=== PATIENT | female | born 1940 | race Caucasian/White ===

== ENCOUNTER 2018-11-18 16:09 | Inpatient (IN) ==
[2018-11-18] MEDS ORDERED: DUONEB (A & A) INH ONE (16:13)
[2018-11-18 16:33] LABS: BASO# 0.02 X1000 (0.0-0.2); BASO% 0.1 % (0.0-0.8); EOS# 0.31 X1000 (0.0-0.7); EOS% 2.1 % (0.0-10.0); HEMATOCRIT 36.5 % (37.0-47.0); HEMOGLOBIN 11.3 g/dL (12.0-16.0); IMM GRAN# 0.04 X1000 (0.0-0.04); IMM GRAN% 0.3 % (0.0-0.5); LYMPH# 2.36 X1000 (1.2-3.4); LYMPH% 15.6 % (20.5-51.1); MCH 27.8 PG (27-31); MCV 89.9 FL (81-99); MONO# 1.13 X1000 (0.11-0.59); MONO% 7.5 % (1.7-9.3); MPV 11.4 FL (7.4-10.4); NEUT# 11.22 X1000 (1.4-6.5); NEUT% 74.4 % (42.2-75.2); PLT 221 X1000 (130-400); RBC 4.06 XMIL (4.2-5.4); WBC 15.08 X1000 (4.8-10.8)
[2018-11-18 16:45] LABS: INR 0.99; PROTIME 13.6 Seconds (11.0-16.0); PTT 28.3 Seconds (22.3-41.8)
[2018-11-18 16:53] LABS: CALCIUM 8.7 mg/dL (8.8-10.2); CREATININE 1.7 mg/dL (0.5-0.9); POTASSIUM 3.7 mmol/L (3.5-5.1); TOTAL BILIRUBIN 0.3 mg/dL (0.20-1.00); TOTAL PROTEIN 6.6 g/dL (6.3-8.3)
--- NOTE | 2018-11-18 16:54 | Diag Imaging Result Doc PS360 ---
CHEST-1 VIEW - 11/18/2018 INDICATION: SOB COMPARISON: None FINDINGS: The lungs are normally expanded and clear. Heart size and mediastinal contours are normal. No pneumothorax or pleural effusion. IMPRESSION: Negative exam. Electronically signed by Abel Cervantes 11/18/2018 4:52 PM
[2018-11-18] MEDS ORDERED: LOVENOX 1 MG/KG SUBQ ONE (17:09)
[2018-11-18] MEDS ORDERED: LOVENOX SUBQ ONE (17:15)
--- NOTE | 2018-11-18 17:38 | EKG Report ---
Test Performed on : 11/18/2018 4:35:57 PM Test Reason : SOB Blood Pressure : / mmHG Vent. Rate : 083 BPM Atrial Rate : 083 BPM P-R Int : 190 ms QRS Dur : 092 ms QT Int : 392 ms P-R-T Axes : 034 -22 040 degrees QTc Int : 460 ms Normal sinus rhythm. Moderate voltage criteria for LVH, may be normal variant Cannot rule out Septal infarct , age undetermined Abnormal ECG No previous ECGs available Unconfirmed Result
[2018-11-18 17:40] LABS: BILIRUBIN URINE NEGATIVE (NEGATIVE); BLOOD URINE NEGATIVE (NEGATIVE); CLARITY CLEAR (CLEAR); COLOR YELLOW; GLUCOSE URINE NEGATIVE (NEGATIVE); KETONE URINE NEGATIVE (NEGATIVE); LEUKOCYTES URINE NEGATIVE (NEGATIVE); NITRITE URINE NEGATIVE (NEGATIVE); PH URINE 6.5; PROTEIN URINE TRACE mg/dL (NEGATIVE); SP GRAVITY URINE 1.015; UROBILINOGEN URINE NORMAL
[2018-11-18] MEDS ORDERED: ROCEPHIN 1 GM in NS 50 ML IV ONE (17:42)
[2018-11-18] MEDS ORDERED: ZITHROMAX 500 MG/NS 500 MG/250 ML IVPB IV ONE (17:42)
[2018-11-18 17:49] LABS: URINE BACTERIA NEGATIVE /HFP; URINE EPITHELIAL CELLS >10 /HPF (<10); URINE RBC <10 /HPF (<10); URINE SOURCE CATH; URINE WBC <10 /HPF (<10)
--- NOTE | 2018-11-18 17:55 | PROVIDER DOCUMENTATION ---
This chart was entered by Gisela Lord Scribe, acting as scribe for Kev Serrano MD. HPI-General Adult - General Chief Complaint: Weakness Stated Complaint: weakness Time Seen by Provider: 11/18/18 16:16 Source: patient, family (son), EMS Allergies/Adverse Reactions: Patient Allergies Allergy/AdvReac Type Severity Reaction Status Date / Time No Known Allergies Allergy Verified 11/18/18 16:24 Home Medications: Home Medication List Medication Instructions Recorded Confirmed Last Taken Type Unobtainable [Home Meds 11/18/18 11/18/18 Unknown History Unobtainable] - History of Present Illness -Gen Adult Nature of Presenting Problems: 78yof presents to ED by EMS cc weakness, cough, low o2. EMS reports they were called to pt home, which is a [facility] facility in [place], b/c nurse said her o2 was low. Pt reports she is very weak and has had a cough but is on no home o2. Pt son is at bedside and reports this is pt 4th ED visit for same symptoms, especially the cough & weakness, and he just wants answers. Pt denies chest pain. Pt is in no apparent distress and nontoxic in appearance upon exam. Location of Pain/Injury: reports: generalized Quality of Pain: reports: aching Severity: reports: moderate Onset/Duration: reports: gradual Timing: reports: still present Context/Activities at Onset: reports: light activity Modifying Factors: improves with: nothing Associated Symptoms: reports: cough, fatigue, weakness Similar Symptoms Previously?: Yes Recently seen or treated by another doctor?: Yes (seen in [facility]) Review of Systems - Adult - REVIEW OF SYSTEMS - ADULT Constitutional: reports: see HPI, fatique. denies: chills, fever Eyes: reports: no symptoms reported Ears, Nose, Mouth & Throat: reports: no symptoms reported Cardiovascular: reports: see HPI. denies: chest pain Respiratory: reports: see HPI, cough, other (low o2) Gastrointestinal: reports: no symptoms reported Genitourinary: reports: no symptoms reported Musculoskeletal: reports: no symptoms reported Integumentary: reports: no symptoms reported Neurological: reports: no symptoms reported Psychiatric: reports: no symptoms reported Endocrine: reports: no symptoms reported Hematologic/Lymphatic: reports: no symptoms reported Allergic/Immunologic: reports: no symptoms reported All Other Systems: Reviewed and Negative Past History - Adult - PAST MEDICAL HISTORY-ADULT Review of Records: reports: Nursing Assessment Review, Medications Reviewed, Social history reviewed & non-contributory. Major Childhood Illnesses: reports: denies history Cardiovascular: reports: denies history Respiratory: reports: denies history Gastrointestinal: reports: denies history Obstetrical/Gynecological: reports: denies history Genitourinary: reports: denies history Musculoskeletal: reports: denies history Neurological: reports: denies history Endocrine/Immune: reports: denies history Other Conditions: reports: denies history - IMMUNIZATION STATUS Childhood Immunizations: See Nurse Assessment Flu Vaccine: See Nurse Assessment - FAMILY HISTORY Family History: reviewed, not pertinent - SOCIAL HISTORY Smoking: denies Physical Exam-General - PHYSICAL EXAM-ADULT Initial Vital Signs Reviewed: Yes - CONSTITUTIONAL General Appearance: appears well, alert, no apparent distress. negative: anxious, combative - EYES Eyes: PERRL/EOMI, pink conjunctivae. negative: photophobia - HEAD, EARS, NOSE, MOUTH & THROAT HENMT: normocephalic/atraumatic, moist mucous membranes. negative: angioedema - NECK Neck: non-tender, full range of motion, supple, normal inspection. negative: C- spine tenderness - RESPIRATORY Respiratory: chest non-tender, lungs clear, decreased breath sounds (left base). negative: normal breath sounds, rhonchi - CARDIOVASCULAR Cardiovascular: normal peripheral pulses, regular rate, rhythm. negative: bradycardia, tachycardia - GASTROINTESTINAL (ABDOMEN) Abdominal Exam: normal bowel sounds, non tender, soft. negative: rebound - MUSCULOSKELETAL Extremity: normal inspection. negative: deformity - SKIN Integumentary: normal color. negative: diaphoresis, ecchymosis - PSYCHIATRIC Psych/Mental Status: normal mood/affect, oriented x 3. negative: anxious, disheveled Progress - PLAN OF CARE/RESULTS Progress/Plan/Lab Results: Vital Signs - 8 hr 11/18/18 16:07 Pulse Rate 99 H Respiratory Rate 18 Blood Pressure 115/70 O2 Sat by Pulse Oximetry 93 L Orders Category Date Time Status Cardiac Monitoring DIRECTED Care 11/18/18 16:12 Active Oxygen Therapy- ED Nursing DIRECTED Care 11/18/18 16:12 Active Saline Loc NOW Care 11/18/18 16:12 Active CHEST-1 VIEW [RAD] Stat Exams 11/18/18 16:13 Ordered CBC WITH ELECTRONIC DIFF [HEME] Stat Lab 11/18/18 16:12 Uncollected CK PROFILE [SP CHEM] Stat Lab 11/18/18 16:12 Uncollected COMPREHENSIVE METABOLIC PANEL [CHEM] Stat Lab 11/18/18 16:12 Uncollected D-DIMER [COAG] Stat Lab 11/18/18 16:13 Ordered PRO B-NATRIURETIC PEPTIDE Stat Lab 11/18/18 16:12 Uncollected PROTIME WITH INR [COAG] Stat Lab 11/18/18 16:12 Uncollected PTT [COAG] Stat Lab 11/18/18 16:12 Uncollected TROPONIN T Stat Lab 11/18/18 16:12 Uncollected Albuterol 2.5MG/Ipratrop 0.5MG [Duoneb (A & A)] Med 11/18/18 16:13 Discontinued 3 ml INH NOW ONE Aerosol Treatments Routine Oth 11/18/18 16:13 Active Aerosol Treatments Stat Oth 11/18/18 16:13 Active CP/SOB/Palp >45 yrs of Age Stat Oth 11/18/18 16:12 Ordered EKG [EKG] Stat Ther 11/18/18 16:12 Ordered Result Diagrams: 11/18/18 16:20 11/18/18 16:20 - REASSESSMENT Reassessment #1 Time Reassessed: 17:55 Status: improving (ALERT. NORMAL MENTAL STATUS. NO CHEST PAIN. ABLE TO SPEAK IN FULL SENTENCES) - EKG 1 Time of EKG reading by physician:: 16:41 EKG Read and Signed by:: Kev Serrano EKG Interpretation (*Must complete 3 of following elements*): Abnormal (cannot rule out septal infarct, age undetermined) Rate: 83 Rhythm: NSR QRS: LVH ST Wave: normal - XRAY 1 XRAY: Bilateral XRAY Study: Chest Impression: See EMR Report (IMPRESSION: Negative exam. Electronically signed by Abel Cervantes 11/18/2018 4:52 PM) - CONSULTS/PCP/HOSPITALIST Notification #1 *Consult/PCP/Hospitalist*: Dr. Juan Time Discussed: 17:52 Consult Disposition: Admit (agreed to admit pt) Departure - Departure Date of Disposition Decision: 11/18/18 Time of Disposition Decision: 17:52 DIAGNOSIS: Weakness, Hypoxia Leukocytosis Qualifiers: Leukocytosis type: unspecified Qualified Code(s): D72.829 - Elevated white blood cell count, unspecified Disposition: ADMITTED INPATIENT 09 Certified Medical Emergency: Emergent Condition: Stable Additional Freetext Instructions: ED Follow Up Instructions: You have been treated by a care provider in the Emergency Department. These instructions are being provided to you so you can have an understanding of how to care for yourself upon discharge. Upon discharge from the Emergency Department, you are responsible for making arrangements for follow-up care by a physician of your choice. Take all prescribed medications as directed. Return to the Emergency Department immediately for any new or worsening symptoms. You may call the Physician Referral phone number at [phone] to obtain a list of Physicians who are taking new patients. Referrals and Follow-Ups: None,PCP [Primary Care Provider] - - Critical Care Note This patient required my direct & personal management of CC.: No Attestation - Physician/ LINCOLN Attestation Patient care was provided by Advanced Practice Provider:: No The physician spent face to face time with patient:: Yes Advanced Practice Provider documentation review:: Supervising physician onsite and consulted in the evaluation and care of this patient. The physician did have a face to face encounter with the patient. This chart was documented by the indicated scribe, (Gisela Lord Scribe) and accurately reflects the services I performed and decisions made by me, Kev Serrano MD, as attested by the provider's signature.
[2018-11-18] MEDS: DUONEB (A & A) INH SCH ×2 (18:16→22:05)
[2018-11-18] MEDS ORDERED: ZOFRAN IV PRN (18:16)
[2018-11-18 19:30] LABS: HEMOGLOBIN A1C 5.8 % (4.8-6.0)
[2018-11-18] MEDS ORDERED: MUCOMYST 20% INH SCH (19:30)
--- NOTE | 2018-11-18 19:34 | Diag Imaging Result Doc PS360 ---
EXAM: CT THORAX W/O CONTRAST - 11/18/2018 HISTORY: pna TECHNIQUE: CT thorax without contrast. No contrast administered per request of the referring provider, apparently due to elevated creatinine/diminished GFR. COMPARISON: 11/18/2018 one view chest FINDINGS: There is mild atelectasis and/or irregular infiltrate at the inferior left lower lobe. The remainder the lungs appear essentially clear. There is no pleural effusion or pneumothorax identified. There are nonspecific small mediastinal lymph nodes. There is a moderate to large hiatal hernia. IMPRESSION: Mild atelectasis and/or irregular infiltrate at inferior left lower lobe. Nonspecific small mediastinal lymph nodes. Moderate to large hiatal hernia. This exam was performed using automated exposure control, adjustment of mA or kV according to patient size, and/or use of iterative reconstruction technique. Electronically signed by Abraham Miller 11/18/2018 7:32 PM
[2018-11-18 19:51] LABS: BE 11.1 mmoll (-3.0-3.0); BLOOD TYPE ARTERIAL; HCO3-(ACT) 33.5 mmoll (20.0-26.0); METHB 0.5 % (0.0-1.5); O2(CT) 15.3 mL/dL (15.0-23.0); O2HB 94.1 % (95.0-99.0); PCO2(98.6) 43 mmHg (35-45); PO2(98.6) 71 mmHg (60-100); SAMPLE BLOOD; SAO2 95.8 % (95.0-100.0); THB 11.5 g/dL (11.5-17.4); pH(98.6) 7.52 (7.35-7.45)
[2018-11-18 19:54] LABS: ALLEN TEST NO; MODALITY CANNULA
--- NOTE | 2018-11-18 20:08 | HISTORY AND PHYSICAL ---
PRIMARY CARE PROVIDER: Dr. Alatorre, Internal Medicine, [place]. CHIEF COMPLAINT: Low oxygenation. Productive cough. HISTORY OF PRESENT ILLNESS: Ms. 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 She recently moved down here from [place] about 3 years ago. She had a history of chronic pain with fibromyalgia, and was on lots of pain medication. Apparently she even went through a little bit of a rehabilitation and was taken off a lot of her pain medication. She has been living at [facility] in [place] for at least 3 years. She came here from [place] because her son is local. There she has been getting around okay, using a walker, but has become much more weak over the last 2 months. She was also treated at [place] around a month and a half ago for pneumonia, and then 2 weeks ago went to [place] once again with confusion. Apparently she has been on and off antibiotics for the last couple of months. Chest x-ray here does not show any pneumonia, but she has been coughing up zhao- sheppard phlegm. She denies any fever but she definitely has some shortness of breath, dizziness and lightheadedness. She has had more shortness of breath. Denies any problems with eating or having any issues with her GI tract. No nausea or vomiting. No diarrhea. No chest pain. We will admit her for hypoxemia, because apparently she had a low oxygen level at the [facility] living and that is why she was brought in today. 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 White count is elevated, D-dimer is elevated. We are going to get a chest CT and a VQ scan to rule out any pulmonary emboli or to see if there is a pneumonia that we are not catching on the x-ray. Home medications, which have not been updated yet: It looks like she takes aspirin 81 mg. She is on something for depression, blood pressure, mood stabilizer, something for cholesterol and some medications for COPD. She was placed on 2 L of oxygen, which improved dramatically. She will be put on some antibiotics. PAST MEDICAL HISTORY: 1. Hypopituitary gland. She was on human growth hormone for 5 years but she has been off that for 3. 2. Coronary artery disease with MD in 1999. No stents. 3. GERD. 4. COPD. 5. Fibromyalgia. 6. Arthritis. 7. Hyperlipidemia. 8. Polypharmacy. 9. Hypertension. 10. Questionable CHF. 11. Depression. PAST SURGICAL HISTORY: 1. Hysterectomy. 2. Cholecystectomy 6 months ago. 3. Cataract surgery. 4. Dental implant. SOCIAL HISTORY: No tobacco. Drinks about 1 alcoholic beverage a month with dinner when she eats with her son. No illicit drug use. She moved from [place] 3 years ago. Her son moved her here, and she has been living at [facility] living in [place] for the last 3 years. She needs a walker to get around, but essentially has been almost bedridden according to the son. FAMILY HISTORY: Mother had heart problems. She had a stroke. Father had a stroke. ALLERGIES: No known drug allergies. MEDICATIONS: Home medications have not been reconciled yet, but what was recently filled that can be found under external medication history are: 1. Aspirin enteric-coated 81 mg p.o. daily. 2. Benzonatate capsule 3 times a day p.r.n. for cough. 3. Buspirone 15 mg p.o. twice a day. 4. Coreg 25 mg p.o. twice a day. 5. Centrum Silver p.o. daily. 6. Cetirizine 1 tablet p.o. daily. 7. Clonidine patch, apply to upper arm or torso and rotate sites weekly on Fridays. 8. Diclofenac gel topical twice a day. 9. Dicyclomine 3 times a day. 10. Duloxetine 30 mg daily. 11. Fluticasone nasal spray daily. 12. Furosemide 40 mg p.o. daily. 13. Hydrochlorothiazide 12.5 mg p.o. daily. 14. Keppra 750 mg p.o. twice daily. 15. Levofloxacin; it looks like she took that back in September. 16. Lisinopril 10 mg p.o. daily. 17. Lyrica 150 mg p.o. twice a day. 18. Melatonin 3 mg at bedtime. 19. Mobic 15 mg p.o. daily. 20. Nifedipine 30 mg daily. 21. Nitrofurantoin she took earlier this month. 22. Omeprazole 40 mg p.o. daily. 23. Zofran 4 mg every 8 hours p.r.n. 24. Prednisone. She was on a prednisone taper. 25. Rosuvastatin 20 mg p.o. nightly. 26. Savella 50 mg p.o. twice daily. 27. She was on Bactrim in September for 7 days, it looks like. 28. Symbicort 160/4.5 twice a day. 29. Tamsulosin 0.4 mg nightly. 30. Telmisartan 80 mg p.o. daily. 31. Trintellix 10 mg p.o. daily. 32. Tussin DM 2 teaspoons every 8 hours p.r.n. for cough. 33. Vitamin D2, 1.25 or 50,000 units once weekly on Fridays. 34. Vitamin B12, 1000 mcg 1 tablet p.o. every day. REVIEW OF SYSTEMS: Fourteen-point review of systems are complete and all are negative except for those mentioned above in HPI. PHYSICAL EXAMINATION: VITAL SIGNS: Temperature not recorded, heart rate 84, respiratory rate 20, blood pressure 104/54, O2 saturation 96% on 2 L nasal cannula. Five feet 6 inches tall, 220 pounds with a BMI of 35.5. GENERAL: Ms. Essie Foster is a 78-year-old female. She is in no acute distress. She is able to answer some questions appropriately. HEENT: Atraumatic, normocephalic. Pupils equal, round and reactive to light. Extraocular movements intact. Mucous membranes are moist. NECK: Trachea midline. CARDIOVASCULAR: S1, S2. Regular rate and rhythm. No rubs, gallops or murmurs. No lower extremity edema. Dorsalis and radial pulses +2. Negative for JVD or carotid bruits. PULMONARY: Clear to auscultate. Bilateral breath sounds, decreased in the bases. No accessory muscle use or work of breathing noted. GASTROINTESTINAL: Soft, nontender, nondistended. Positive bowel sounds x4. EXTREMITIES: Moves all extremities equally. Decreased range of motion. Strength is 4/5. NEUROLOGIC: Alert and oriented x3. Follows commands. Sensory is intact. SKIN: Warm, dry, intact, except for bruising in different areas. The left thumb is actually pretty bruised. LABORATORY DATA: White blood cells 15,000, hemoglobin 11, hematocrit 36, platelet count 221,000. INR 0.99, PTT is 28.3. D-dimer is 2.84. Sodium 139, potassium 3.7, BUN 40, creatinine 1.7, glucose 143, calcium is 8.7, bilirubin 0.30, AST 14, ALT 14. CK 35, troponin less than 0.01. ProBNP 40. Albumin 4.1, lactate 1.3. TSH 1.94. Urinalysis: Trace protein. DIAGNOSTIC DATA: Chest x-ray: Negative exam. EKG: Normal sinus rhythm, rate 83, QTc is 460. ASSESSMENT AND PLAN: 1. Chronic obstructive pulmonary disease exacerbation with [id number] hypoxemic respiratory insufficiency or failure, requiring oxygen. Improved quickly with oxygen. She will be receiving acetylcysteine, albuterol/Atrovent nebulizers, and we will probably need to get her started on some steroids. We will check a chest CT to rule out pneumonia. 2. Recently treated for pneumonia at an outside hospital about a month and a half ago. She has been coughing up colored phlegm, sheppard-zhao, so we will get a culture on that. She has leukocytosis with this, so she is on Zyvox and cefepime. 3. Elevated D-dimer. We will need to do an ultrasound of the lower extremities. She is going to have a VQ scan. She has some acute kidney injury due to that, probably from a little dehydration. She has been given a onetime dose of Lovenox. We will follow up tomorrow on her CT scan. 4. Anemia. We will trend it. 5. Acute kidney injury. Could possibly have a history of chronic kidney disease, but it is unknown at this point. We will recheck her kidney function in the morning. 6. Hyperglycemia, with no history of diabetes. We will do a hemoglobin A1c. She does actually have a recent use of prednisone taper, which could make this elevated. 7. Polypharmacy. Son has some concern about her being on so many medications, and she is on a lot of medications. It could very will need some trending down on these medications. Still waiting for the nurses to put in her home medications and have them completely verified, and we will evaluate what can be stopped and what can be continued. 8. History of fibromyalgia. Used to have a history of being on several pain medications, but was weaned from those around 3 years ago. 9. Hyperlipidemia. She is supposed to be on statin. 10. Gastroesophageal reflux disease. 11. History of myocardial infarction in 1999, but no stents. 12. Questionable history of possible congestive heart failure. She is on Lasix and she is also on Coreg. 13. Hypertension. Once home medications are verified, we will resume what we feel needs to be resumed. 14. Depression. Again, we will evaluate what medications she is actually on and get some started back if needed. 15. Deep venous thrombosis prophylaxis. She actually got a dose of weight-based Lovenox. Dictated by LILA Goodrich for Gigi Brito MD Addendum: Patient seen and examined by myself. Agree with LILA note. It reflects my assessment and plan. Patient is being admitted to hospital for PNA. Will start broad spectrum antibiotics with Zyvox and Cefepime. Will provide Duoneb as well. Will also check VQ scan because of elevated D dimer. Will monitor patient closely. cc: LILA Goodrich MD [facility]
[2018-11-18] MEDS: SOLU-MEDROL IV SCH (21:03)
[2018-11-18] MEDS: MAXIPIME 1 GM in NS 50 ML IV SCH (21:05)
[2018-11-18] MEDS: ZYVOX 600 MG/D5W 600 MG/300 ML IVPB IV SCH (21:55)
[2018-11-19] MEDS: DUONEB (A & A) INH SCH ×4 (03:03→23:13)
[2018-11-19] MEDS: SOLU-MEDROL IV SCH ×3 (05:18→20:22)
[2018-11-19 06:01] LABS: HEMATOCRIT 34.6 % (37.0-47.0); HEMOGLOBIN 10.7 g/dL (12.0-16.0); IMM GRAN# 0.02 X1000 (0.0-0.04); IMM GRAN% 0.2 % (0.0-0.5); LYMPH# 1.06 X1000 (1.2-3.4); LYMPH% 10.8 % (20.5-51.1); MCH 27.7 PG (27-31); MCHC 30.9 g/dL (33-37); MCV 89.6 FL (81-99); MPV 11.6 FL (7.4-10.4); PLT 206 X1000 (130-400); RBC 3.86 XMIL (4.2-5.4); RDW 15.5 % (11.5-14.5); WBC 9.78 X1000 (4.8-10.8)
[2018-11-19 06:10] LABS: CALCIUM 8.6 mg/dL (8.8-10.2); CREATININE 1.4 mg/dL (0.5-0.9); POTASSIUM 4.1 mmol/L (3.5-5.1)
[2018-11-19 06:21] LABS: BE 9.3 mmoll (-3.0-3.0); BLOOD TYPE ARTERIAL; HCO3-(ACT) 32.1 mmoll (20.0-26.0); METHB 0.4 % (0.0-1.5); O2(CT) 14.9 mL/dL (15.0-23.0); O2HB 93.4 % (95.0-99.0); PCO2(98.6) 43 mmHg (35-45); PO2(98.6) 66 mmHg (60-100); SAMPLE BLOOD; SAO2 95.1 % (95.0-100.0); THB 11.3 g/dL (11.5-17.4)
[2018-11-19 06:25] LABS: ALLEN TEST NO; MODALITY CANNULA
[2018-11-19 07:24] LABS: LYMPHS 10 % (21-51); MONO 1 % (1-9); SEGS 89 % (42-75)
--- NOTE | 2018-11-19 09:00 | Extremity Venous Study ---
EXAM: Venous U/S Bilateral Legs HISTORY: elevated D dimer TECHNIQUE: Hernandez scale, color Doppler, and duplex evaluation was performed. COMPARISON: None. FINDINGS: The deep veins of the bilateral lower extremities demonstrate appropriate compressibility and augmentation. No intraluminal thrombus is visualized. There is no evidence for DVT. The superficial veins appear patent. IMPRESSION: No evidence for deep venous thrombosis bilateral lower extremities. Electronically signed by Destiney Hart 11/19/2018 8:57 AM
[2018-11-19] MEDS: MAXIPIME 1 GM in NS 50 ML IV SCH ×2 (09:03→20:22)
[2018-11-19] MEDS ORDERED: CYMBALTA PO SCH (09:30)
--- NOTE | 2018-11-19 10:55 | Diag Imaging Result Doc PS360 ---
EXAM: LUNG SCAN / VQ HISTORY: SOB TECHNIQUE: Ventilatory images obtained with 37.2 mCi technetium DTPA. Perfusion images obtained with 5.9 mCi technetium MAA. COMPARISON: None. FINDINGS: There are no segmental perfusion abnormalities. No ventilation/perfusion mismatches. No evidence for acute pulmonary embolism. IMPRESSION: No evidence for acute pulmonary embolism. Electronically signed by Destiney Hart 11/19/2018 10:53 AM
[2018-11-19] MEDS: KEPPRA PO SCH ×3 (11:03→20:33)
[2018-11-19] MEDS: COREG PO SCH ×2 (11:03→20:23)
[2018-11-19] MEDS: ZYVOX 600 MG/D5W 600 MG/300 ML IVPB IV SCH (11:03)
[2018-11-19] MEDS: ASPIRIN EC PO SCH (11:03)
[2018-11-19] MEDS: MUCOMYST 20% INH SCH ×2 (11:14→23:13)
--- NOTE | 2018-11-19 12:21 | PROGRESS NOTE ---
DATE: 11/19/2018 SUBJECTIVE: The patient reports feeling fine. Denies any fever, chills, or shortness of breath. OBJECTIVE: Vital Signs: Temperature 97.8, heart rate 84, respiratory rate 18, blood pressure 113/63, and O2 saturation 95% on 2 L nasal cannula. General: This is a 78-year-old female lying in bed in no acute distress. Cardiovascular: S1, S2 heard. No murmurs, gallops, or rubs. Regular rate and rhythm. Respiratory: Clear bilaterally to auscultation reduced at both bases. Patient not using any accessory muscles or having work of breathing. Abdomen: Soft. Nontender to palpation. Bowel sounds present. No organomegaly. Extremities: No clubbing, cyanosis, or edema. Peripheral pulses present in both legs. Neurological: Patient alert and oriented x3. Moves all 4 extremities. LABORATORY DATA: White cell count is 9.78, hemoglobin 10.7, hematocrit 34.6, and platelets 206,000. ABG that shows pH 7.50, pCO2 43, and PO2 of 66. BMP reveals creatinine 1.4 and glucose 207. ASSESSMENT AND PLAN: 1. Chronic obstructive pulmonary disease exacerbation/left lower lobe pneumonia. The patient is on cefepime and Zyvox. White cell count is back to normal today. At this point, we will continue with acidosis and DuoNeb, and current antibiotics. 2. Elevated D-dimer. V/Q scan is pending. Patient received yesterday 1 dose 100 mg of Lovenox. We will see what that exam shows. I think most likely she has this pneumonia, and no pulmonary embolism. We have also ordered a Doppler of both lower extremities. No blood clot was seen. 3. Anemia of chronic disease. We will continue to monitor. CBC. 4. Acute kidney injury. I don't know if this is chronic or acute, but in any case, that condition is getting better. We will continue to monitor BMP. 5. Polypharmacy. We are awaiting for release of medications to make some adjustments to her current medications. 6. Hypertension. Blood pressure is under control. We will continue with same management. 7. Disposition. We will continue to monitor this patient closely. We will see what the VQ scan and echocardiogram shows. We will go from there. cc: Gigi Brito MD
--- NOTE | 2018-11-19 15:46 | ECHO REPORT ---
ORDER DATE: 11/18/2018 INDICATION: Shortness of breath. FINDINGS: 1. Right atrium appears normal in size at 3 cm. 2. Trace tricuspid regurgitation. RV systolic pressure of 34. 3. Normal RV size and systolic function. 4. No significant pulmonic insufficiency. 5. Normal left atrial size with a volume index of 22. 6. No mitral valve prolapse. Trace mitral regurgitation. There is no evidence of mitral stenosis. 7. Normal LV size, end-diastolic dimension of 4.8. Normal wall thicknesses with a posterior and interventricular septal wall thickness of 0.9 cm each. Normal LV systolic function. The estimated EF is 60%. No evidence of significant wall motion abnormalities on some limited images. 8. Aortic valve opens well. It is trileaflet. No evidence of stenosis or insufficiency. 9. Aorta appears normal in visualized segments. 10. No pericardial effusion seen. cc: MD Gigi Samayoa MD
[2018-11-19] MEDS: FLOMAX PO SCH (20:23)
[2018-11-19] MEDS: RESTASIS 0.05% OPH DROPS BOTH EYES SCH (20:23)
[2018-11-20] MEDS: ZYVOX 600 MG/D5W 600 MG/300 ML IVPB IV SCH ×3 (00:14→22:05)
[2018-11-20] MEDS: SOLU-MEDROL IV SCH (04:22)
[2018-11-20] MEDS: DUONEB (A & A) INH SCH ×4 (04:25→23:00)
[2018-11-20 06:17] LABS: BASO# 0.01 X1000 (0.0-0.2); BASO% 0.1 % (0.0-0.8); HEMATOCRIT 32.5 % (37.0-47.0); HEMOGLOBIN 10.1 g/dL (12.0-16.0); IMM GRAN# 0.08 X1000 (0.0-0.04); IMM GRAN% 0.5 % (0.0-0.5); LYMPH% 7.5 % (20.5-51.1); MCH 27.7 PG (27-31); MCHC 31.1 g/dL (33-37); MONO# 0.67 X1000 (0.11-0.59); MONO% 3.9 % (1.7-9.3); MPV 11.6 FL (7.4-10.4); NEUT# 15.19 X1000 (1.4-6.5); PLT 221 X1000 (130-400); RBC 3.65 XMIL (4.2-5.4); RDW 15.3 % (11.5-14.5); WBC 17.25 X1000 (4.8-10.8)
[2018-11-20 06:22] LABS: CALCIUM 8.9 mg/dL (8.8-10.2); CREATININE 1.1 mg/dL (0.5-0.9); POTASSIUM 4.1 mmol/L (3.5-5.1)
[2018-11-20] MEDS: PRILOSEC PO SCH (06:27)
[2018-11-20 06:45] LABS: LYMPHS 7 % (21-51); MONO 5 % (1-9); NRBC 1 % (0-0); SEGS 88 % (42-75)
[2018-11-20] MEDS: MUCOMYST 20% INH SCH ×2 (08:07→23:00)
[2018-11-20] MEDS: RESTASIS 0.05% OPH DROPS BOTH EYES SCH ×2 (08:33→20:30)
[2018-11-20] MEDS: KEPPRA PO SCH ×2 (08:34→20:20)
[2018-11-20] MEDS: FLONASE NAS SCH (08:34)
[2018-11-20] MEDS: ASPIRIN EC PO SCH (08:34)
[2018-11-20] MEDS: MAXIPIME 1 GM in NS 50 ML IV SCH ×3 (08:34→20:29)
[2018-11-20] MEDS: THERA M PLUS PO SCH (08:35)
[2018-11-20] MEDS: COREG PO SCH ×2 (08:35→20:20)
[2018-11-20] MEDS ORDERED: LASIX PO SCH (09:00)
--- NOTE | 2018-11-20 11:21 | PROGRESS NOTE ---
DATE: 11/20/2018 SUBJECTIVE: The patient reports feeling not okay today, although she is not able to tell me what exactly is going on. She is breathing okay. She does not have any chest pain. She does not have any fever. OBJECTIVE: Vital Signs: Temperature 98.3 degrees, heart rate 71, respiratory rate 18, blood pressure 135/63, O2 saturation 92% pain on room air. General Examination: This is a 78-year-old, female, lying in bed, in no acute distress. Cardiovascular Examination: S1 and S2 heard. No murmurs, gallops, or rubs. Regular rate and rhythm. Respiratory Examination: Clear bilaterally to auscultation. Diminished breath sounds in both bases. Patient is not using any accessory muscles or having work of breathing. Abdomen: Soft. Nontender to palpation. Bowel sounds present. No organomegaly. Extremities: No clubbing, cyanosis, or edema. Peripheral pulses present in both legs. Neurological Examination: The patient is alert and oriented x3. Moves 4 extremities. Laboratory Data: White cell count is 17.35, hemoglobin 10.1, hematocrit 32.5, platelets 221,000. Creatinine 1.1. ASSESSMENT AND PLAN: 1. Chronic obstructive pulmonary disease exacerbation/left lower lobe pneumonia. Patient continues to be on Zyvox and cefepime. White cell count is still elevated, I think because of the intravenous steroids. We are going to stop those. We will continue with current antibiotics and DuoNebs. 2. Elevated D-dimer. We have ruled out a pulmonary embolism by doing a V/Q scan that is negative. We will also ordered a Doppler of both lower extremities but no blood clot was identified. 3. Anemia of chronic disease. Stable. We will continue to monitor CBC. 4. Acute kidney injury. Kidney function is almost back to normal. We will continue to monitor BMP. 5. Polypharmacy. Once this patient is going to be released, we will make some adjustments to her current medications. 6. Hypertension. Blood pressure is under control. We will continue with the same management. 7. Disposition. At this point, we will continue to monitor this patient closely. Our plan is to send her to a rehab facility because during the last month, she has been in the hospital two times at her assisted living, she is in the bed all the time. cc: Gigi Brito MD [facility]
[2018-11-20] MEDS ORDERED: TYLENOL PO PRN (16:30)
[2018-11-20] MEDS ORDERED: ULTRAM PO PRN (16:31)
[2018-11-20] MEDS: FLOMAX PO SCH (20:20)
[2018-11-21] MEDS: DUONEB (A & A) INH SCH ×3 (05:13→22:12)
[2018-11-21 06:06] LABS: HEMATOCRIT 31.7 % (37.0-47.0); HEMOGLOBIN 9.8 g/dL (12.0-16.0); IMM GRAN# 0.03 X1000 (0.0-0.04); IMM GRAN% 0.3 % (0.0-0.5); LYMPH# 1.71 X1000 (1.2-3.4); LYMPH% 14.9 % (20.5-51.1); MCH 27.6 PG (27-31); MCHC 30.9 g/dL (33-37); MCV 89.3 FL (81-99); MONO# 0.88 X1000 (0.11-0.59); MONO% 7.7 % (1.7-9.3); MPV 11.5 FL (7.4-10.4); NEUT# 8.86 X1000 (1.4-6.5); NEUT% 77.1 % (42.2-75.2); PLT 208 X1000 (130-400); RBC 3.55 XMIL (4.2-5.4); RDW 15.4 % (11.5-14.5); WBC 11.48 X1000 (4.8-10.8)
[2018-11-21 06:13] LABS: CALCIUM 8.8 mg/dL (8.8-10.2); CREATININE 1.3 mg/dL (0.5-0.9); POTASSIUM 3.8 mmol/L (3.5-5.1)
[2018-11-21] MEDS: PRILOSEC PO SCH (06:20)
[2018-11-21] MEDS: MUCOMYST 20% INH SCH ×2 (09:03→22:12)
[2018-11-21] MEDS: RESTASIS 0.05% OPH DROPS BOTH EYES SCH ×2 (09:15→21:09)
[2018-11-21] MEDS: MAXIPIME 1 GM in NS 50 ML IV SCH ×2 (09:15→21:10)
[2018-11-21] MEDS: FLONASE NAS SCH (09:15)
[2018-11-21] MEDS: KEPPRA PO SCH (09:16)
[2018-11-21] MEDS: ASPIRIN EC PO SCH (09:16)
[2018-11-21] MEDS: THERA M PLUS PO SCH (09:16)
[2018-11-21] MEDS: COREG PO SCH ×2 (09:16→21:07)
[2018-11-21] MEDS: ZYVOX 600 MG/D5W 600 MG/300 ML IVPB IV SCH (10:31)
--- NOTE | 2018-11-21 10:34 | Diag Imaging Result Doc PS360 ---
EXAM: CT HEAD W/O CONTRAST - 11/21/2018 HISTORY: AMS TECHNIQUE: CT head without contrast COMPARISON: None. FINDINGS: There are mild atrophic changes. There is no evidence of intracranial hemorrhage, mass effect, midline shift, or hydrocephalus. There is no evidence of infarct, although acute infarcts may not be immediately visible. There is no evidence of skull fracture. There is mild paranasal sinus disease at the left compartment of the sphenoid sinus. The right mastoid bone is less aerated than the left, but the appearance is compatible with chronic change. IMPRESSION: No visible acute intracranial abnormality. No hemorrhage or mass effect. Mild paranasal sinus disease noted at the left compartment of the sphenoid sinus. This exam was performed using automated exposure control, adjustment of mA or kV according to patient size, and/or use of iterative reconstruction technique. Electronically signed by Abraham Miller 11/21/2018 10:32 AM
--- NOTE | 2018-11-21 11:27 | PROGRESS NOTE ---
DATE: 11/21/2018 SUBJECTIVE: Patient appears comfortably lying in bed and denies having any acute complaints, but has not been very verbal. OBJECTIVE: Vital Signs: Temperature 98.2 degrees, pulse 70 per minute, respiratory rate 16 per minute, blood pressure 124/45, pulse oximetry 96% on room air. General: Patient is awake and alert. She does not appear to be in any acute distress. Cardiovascular System: First and second heart sounds are audible without any murmurs or gallops. Respiratory System: Bilateral lung air entry is good without any rales or rhonchi. Gastrointestinal System: Patient is morbidly obese. Abdomen is soft and nontender on palpation. Normal bowel sounds are present. Neurologic: The patient is very slow to respond and appears to be phased out at times. I did not see any other focal deficits otherwise. DIAGNOSTIC DATA: CBC shows WBC count of 11.48, hemoglobin 9.8, hematocrit 31.7, and platelet count 208. Her WBC is improved as compared to yesterday when her WBC count was 17.25. Her hemoglobin and hematocrit have remained stable during the past several days. Basic metabolic panel showed BUN of 29 and creatinine 1.3. This is slightly worse as compared to yesterday when her BUN and creatinine were [address] scan of the brain without contrast done this morning because of altered mental status showed no visible acute intracranial abnormality, and did not have any hemorrhage or mass effect. IMPRESSION: 1. Altered mental status. 2. Acute chronic obstructive pulmonary disease exacerbation. 3. Left lower lobe pneumonia. 4. Hypertension. 5. Acute kidney injury. PLAN: She is having altered mental status and therefore I am going to obtain Neurology consultation with Dr. Arnold for further evaluation. CT scan did not show any significant findings, and it could be metabolic encephalopathy. She will continue with aspirin 81 mg orally once daily. As far as her COPD exacerbation and left-sided pneumonia are concerned, they are kind of resolved, and patient feels much better and has no wheezing anymore. She does have worsening of BUN and creatinine, and therefore I have discontinued her furosemide. She did have an echocardiogram done on 11/18/2018 that showed left ventricular ejection fraction to be well preserved at 60%. No signs of diastolic dysfunction were present either. Because of that, I have discontinued her Lasix and we are going to monitor her BUN and creatinine improvement in the next few days. She is therefore not going to be transferred out today or tomorrow since we are going to monitor her altered mental status at this time. We will continue with cefepime IV and would wait until Neurology consultation is done. cc: Saman Izaguirre MD
--- NOTE | 2018-11-21 14:50 | CONSULTATION ---
DATE OF CONSULTATION: 11/21/2018 Ms. Foster is 78 years old and she appears to have an altered mental state. She is not able to provide a valid history. I spoke at length with her son by telephone. I have reviewed the admission and subsequent records. This is her 1st admission here. Son reports she has been a little bit forgetful in recent months and that was more prominent while she was hospitalized for management of pneumonia in [place] a few months ago. She seemed better after she got out of the hospital. She has been in assisted living recently. She was admitted to this hospital with question of exacerbation of COPD. She has been noted to seem inattentive and to have trouble answering questions. She has not had a clear focal neurologic deficit. She has not been unresponsive or unconscious. She told me that she does not have headache. She does not have any other specific complaint. She seems uncertain about prior seizure history. Son reports seizure diagnosed elsewhere about 4 years ago and she has been taking levetiracetam since then. Son believes she has not had recent seizure. Son did not witness seizure. His report is that he was told she was "out of it" and "confused" as seizure manifestation, without definite unconsciousness or clonic activity reported. There is history of minor head injury about 5 years ago without altered consciousness. There is no history of more major or more recent head injury. She has never had diagnosed stroke, according to son. Son does not recall trial with cholinesterase inhibitor. On admission, her home medicine list has 35 entries. Son reports he has been concerned by the number of medications. She has been afebrile here. Heart rate has ranged 60s to 100s. Systolic blood pressures have ranged 100 to 130s. Lab showed BUN initially 40, down to 29 on last check. Initial creatinine was 1.7, down to 1.3 on last check. Blood sugars have ranged 140s to 200s. We did not have urine drug screen this admission. [place] [address] and later [address]. She has anemia. Noncontrast CT of the head is unremarkable. On exam, she is supine, awake, alert. She seems attentive at times and at other times not so attentive. She answered some simple questions correctly and later answered simple questions either incorrectly or with nonsense (I asked her to name the day of the week and she said "mohit"). Her speech is not dysarthric. Some of the language testing is difficult to interpret in light of the apparent poor attention. Responses were inconsistent but she was able to demonstrate good language function with repeated testing of repeating, naming, comprehension and fluency. .She did not name the hospital. She did tell me the correct name for the President. She did not discuss recent news when asked to do so. Head and neck are unremarkable. There is no meningismus. Hands and feet are warm. She has full visual mesa tested grossly by confrontational finger counting. Extraocular movements are full. Facial motility is good bilaterally. The right nasolabial fold is less prominent than the left but motility is good bilaterally. Gag is intact. Tongue is midline. She can hear. Shoulder shrug is equal. Strength is normal in the arms and legs. Tone is symmetric. She did well on [id number]-sq-raco testing bilaterally. Attention fluctuated, but she generally reported symmetric sensation over the hands and a mild symmetric stocking pattern of sensory loss below the ankles. Proprioception is good at the second finger MP joint bilaterally. I did not test her gait. IMPRESSION: This appears to be a global encephalopathy, except there may be some concern for dysphasia. Facial asymmetry is noted but motility is good bilaterally. Negative CT is reassuring. I have ordered a brain MRI for further reassurance. There may be a history of seizure and subclinical seizure might account for some of her apparent fluctuating attention. We will get EEG to check on that. We will continue levetiracetam at current dose for now. Depending on the EEG findings and clinical course, we might consider increasing that. She had transient poor renal function and she could have had a transient elevated levetiracetam serum level, but history does not sound like levetiracetam toxicity is the sole cause of recent difficulty. Cefepime has been added, which can be associated with encephalopathy, but I believe she was having problems before that was started. Son's history suggests a baseline cognitive impairment which would predispose her to greater encephalopathy with any toxic or metabolic problem. Depending on her clinical course, we might consider cautious cholinesterase inhibitor trial but I am very reluctant to add medicine to her current list. I agree with plans to try to reduce the number of medications. If she continues to be altered, particularly if there is deterioration, we might consider further workup including auto antibody profile with question of autoimmune encephalitis. That portion of workup is not urgent. Thanks for asking Neurology to see Ms. Foster. cc: Yasmany Arnold III, MD [facility]
--- NOTE | 2018-11-21 17:03 | Diag Imaging Result Doc PS360 ---
EXAM: MRI BRAIN W/WO CONTRAST - 11/21/2018 HISTORY: AMS TECHNIQUE: MRI brain without and with contrast. Images are obtained prior to and following gadolinium administration. COMPARISON: 11/21/2018 CT head without contrast FINDINGS: There are mild atrophic changes. There are mild chronic microvascular ischemic changes. The diffusion weighted images show no areas of restricted diffusion (no evidence of acute infarct). There is no evidence of intracranial hemorrhage, mass effect, midline shift, or hydrocephalus. There are no other substantial signal abnormalities identified. There is no abnormal enhancement identified. IMPRESSION: Mild atrophic changes and mild chronic microvascular ischemic changes. No visible acute intracranial abnormality. No evidence of acute infarct. Electronically signed by Abraham Miller 11/21/2018 5:00 PM
[2018-11-21] MEDS: KEPPRA 1,000 MG/NS 1,000 MG/100 ML IVPB IV SCH (18:22)
--- NOTE | 2018-11-21 19:04 | EEG REPORT ---
DATE: 11/21/2018 ELECTROENCEPHALOGRAM NUMBER: [id number]. COMMENT: This is a digitally-recorded EEG on a 78-year-old patient with reported past history of seizure, recent apparent fluctuating level of attention, question of subclinical seizures. FINDINGS: There is occasional sharp and slow wave discharge, sometimes repetitive, mostly generalized without definite electrographic seizure. There is poorly sustained 9 Hz posterior rhythm intermittently. The background contains polymorphic and rhythmic theta frequencies with occasional slowing into the delta range frontally. Photic stimulation did not significantly alter the record. Hyperventilation was not done. Stage 2 sleep was not recorded. INTERPRETATION: Abnormal EEG because of generalized slowing and generalized epileptiform discharge. CORRELATION: This is indicative of a diffuse encephalopathy and is nonspecific. Epileptiform discharge would correlate with clinical seizure. cc: Yasmany Arnold III, MD [facility]
[2018-11-21] MEDS: FLOMAX PO SCH (21:10)
[2018-11-22] MEDS: ZYVOX 600 MG/D5W 600 MG/300 ML IVPB IV SCH (00:47)
[2018-11-22] MEDS: DUONEB (A & A) INH SCH ×5 (03:31→22:22)
[2018-11-22] MEDS: PRILOSEC PO SCH (06:36)
[2018-11-22] MEDS: KEPPRA 1,000 MG/NS 1,000 MG/100 ML IVPB IV SCH ×2 (06:36→18:34)
[2018-11-22 06:42] LABS: BASO# 0.01 X1000 (0.0-0.2); BASO% 0.2 % (0.0-0.8); EOS# 0.08 X1000 (0.0-0.7); EOS% 1.4 % (0.0-10.0); HEMATOCRIT 32.6 % (37.0-47.0); HEMOGLOBIN 10.1 g/dL (12.0-16.0); IMM GRAN# 0.01 X1000 (0.0-0.04); IMM GRAN% 0.2 % (0.0-0.5); LYMPH# 2.05 X1000 (1.2-3.4); LYMPH% 35.3 % (20.5-51.1); MCH 27.6 PG (27-31); MCV 89.1 FL (81-99); MONO% 10.3 % (1.7-9.3); MPV 11.3 FL (7.4-10.4); NEUT# 3.05 X1000 (1.4-6.5); NEUT% 52.6 % (42.2-75.2); PLT 197 X1000 (130-400); RBC 3.66 XMIL (4.2-5.4); RDW 15.3 % (11.5-14.5)
[2018-11-22 06:51] LABS: CALCIUM 8.5 mg/dL (8.8-10.2); CREATININE 1.1 mg/dL (0.5-0.9); POTASSIUM 3.6 mmol/L (3.5-5.1)
--- NOTE | 2018-11-22 07:43 | Diag Imaging Result Doc PS360 ---
EXAM: CHEST-PORTABLE INDICATION: Pneumonia TECHNIQUE: One view COMPARISON: 11/18/2018 FINDINGS: There is stable mild elevation of the right hemidiaphragm. The lungs are grossly clear. There is no discrete pleural fluid collection or pneumothorax. The cardiomediastinal silhouette and central vasculature are grossly unremarkable. IMPRESSION: No evidence of acute pathology by plain radiograph. Electronically signed by Rj Bal 11/22/2018 7:40 AM
[2018-11-22] MEDS: ASPIRIN EC PO SCH (08:53)
[2018-11-22] MEDS: THERA M PLUS PO SCH (08:53)
[2018-11-22] MEDS: COREG PO SCH ×2 (08:53→21:22)
[2018-11-22] MEDS: MAXIPIME 1 GM in NS 50 ML IV SCH ×2 (08:54→21:30)
[2018-11-22] MEDS: MUCOMYST 20% INH SCH ×2 (10:55→22:22)
--- NOTE | 2018-11-22 12:30 | PROGRESS NOTE ---
DATE: 11/22/2018 SUBJECTIVE: The patient remains not able to communicate properly and is somewhat kind of lost whenever we try to communicate with her. OBJECTIVE: Vital Signs: Temperature 98.3 degrees, pulse 74 per minute, respiratory rate 20 per minute, blood pressure 135/74, pulse oximetry 90% on room air. General: Patient is awake and alert but somewhat disoriented at times. She is not able to communicate properly. Cardiovascular System: First and second heart sounds are audible without any murmurs or gallops. Respiratory System: No respiratory distress noted. Bilateral lung air entry is good without any rales or rhonchi. Gastrointestinal system: Abdomen is benign. Neurologic: The patient is not able to communicate properly and speaks with a significant delay. She also appears to be extremely forgetful, but no other focal deficits are noted. DIAGNOSTIC DATA: CBC shows WBC count of 5.80, hemoglobin 10.1, hematocrit 32.6 and platelet count 197,000. Hemoglobin and hematocrit have been essentially stable as compared to previous labs. Basic metabolic panel is nondiagnostic. Chest x-ray done this morning did not show any evidence of acute pathology. Brain MRI done yesterday showed mild atrophic changes and mild chronic microvascular ischemic changes. EEG showed abnormal findings of generalized slowing and generalized epileptiform discharge. IMPRESSION: 1. Altered mental status. 2. Acute chronic obstructive pulmonary disease exacerbation. 3. Left lower lobe pneumonia. 4. Hypertension. PLAN: The patient is having altered mental status and Neurology consultation with Dr. Arnold was obtained, who did an EEG and suggested MRI brain which was also performed. There seems to be either metabolic encephalopathy or seizure disorder, and we will still need assistance from Dr. Arnold to evaluate that area. As far as chronic obstructive pulmonary disease exacerbation and left-sided pneumonia are concerned, they are resolved and patient is overall stable. Her blood pressure has also remained stable and therefore, we will transfer her to rehab facility sometime next week if the altered mental status is addressed from Neurology standpoint. cc: Saman Izaguirre MD
[2018-11-22] MEDS: FLONASE NAS SCH (12:41)
[2018-11-22] MEDS: ZYVOX PO SCH ×2 (12:42→13:02)
[2018-11-22] MEDS: RESTASIS 0.05% OPH DROPS BOTH EYES SCH ×2 (12:42→21:23)
[2018-11-22] MEDS: NS 1,000 ML IV SCH (13:00)
[2018-11-22] MEDS: FLOMAX PO SCH (21:23)
[2018-11-23] MEDS: NS 1,000 ML IV SCH ×3 (00:44→16:51)
[2018-11-23] MEDS: ZYVOX PO SCH ×3 (00:45→21:16)
[2018-11-23] MEDS: DUONEB (A & A) INH SCH ×4 (04:07→19:32)
[2018-11-23] MEDS: KEPPRA 1,000 MG/NS 1,000 MG/100 ML IVPB IV SCH ×2 (05:06→17:43)
[2018-11-23] MEDS: PRILOSEC PO SCH (06:17)
[2018-11-23 06:45] LABS: BASO# 0.01 X1000 (0.0-0.2); BASO% 0.2 % (0.0-0.8); EOS# 0.16 X1000 (0.0-0.7); EOS% 2.8 % (0.0-10.0); HEMATOCRIT 33.5 % (37.0-47.0); HEMOGLOBIN 10.4 g/dL (12.0-16.0); LYMPH# 1.57 X1000 (1.2-3.4); LYMPH% 27.2 % (20.5-51.1); MCH 27.4 PG (27-31); MCV 88.2 FL (81-99); MONO# 0.54 X1000 (0.11-0.59); MONO% 9.4 % (1.7-9.3); MPV 10.9 FL (7.4-10.4); NEUT# 3.49 X1000 (1.4-6.5); NEUT% 60.4 % (42.2-75.2); PLT 186 X1000 (130-400); RDW 15.4 % (11.5-14.5); WBC 5.77 X1000 (4.8-10.8)
[2018-11-23 07:18] LABS: POTASSIUM 3.9 mmol/L (3.5-5.1)
[2018-11-23 07:19] LABS: ALBUMIN 3.5 g/dL (3.5-5.0); TOTAL BILIRUBIN 0.5 mg/dL (0.20-1.00); TOTAL PROTEIN 6.1 g/dL (6.3-8.3)
[2018-11-23] MEDS: MUCOMYST 20% INH SCH ×2 (09:39→19:32)
[2018-11-23] MEDS: MAXIPIME 1 GM in NS 50 ML IV SCH ×2 (10:24→20:42)
[2018-11-23] MEDS: ASPIRIN EC PO SCH (10:25)
[2018-11-23] MEDS: THERA M PLUS PO SCH (10:25)
[2018-11-23] MEDS: COREG PO SCH ×2 (10:25→20:42)
--- NOTE | 2018-11-23 13:53 | PROGRESS NOTE ---
DATE: 11/23/2018 SUBJECTIVE: The patient reports feeling fine. According to family son who is at bedside she is back to normal today with coherent speech and patient denies any complaint. OBJECTIVE: Vitals: Temperature 99.2 degrees, heart rate 73, respiratory rate 20, blood pressure 148/74, O2 saturation 98% on room air. General: This a 78-year-old female lying in bed in no acute distress. Cardiovascular: S1, S2 heard. No murmurs, gallops, or rubs. Regular rate and rhythm. Respiratory: Clear bilaterally to auscultation. No work of breathing or using accessory muscles. Abdomen: Soft, nontender to palpation. Bowel sounds present. No organomegaly. Extremities: No clubbing, cyanosis, or edema. Peripheral pulses present in both legs. Neurologic: The patient is able to talk to me as she was days ago. Her answers are slow but coherent. Moves 4 extremities spontaneously. LABORATORY DATA: White cell count 5.77, hemoglobin 10.4, hematocrit 33.5, platelets 196,000, creatinine 1.0. ASSESSMENT AND PLAN: 1. Altered mental status. Patient has been evaluated by neurology and clinically this patient is getting much better. EEG was performed and that showed diffuse encephalopathy nonspecific and also epileptiform discharge with correlate with clinical seizure. We know that she has seizure and she is on medications for that but considering that she is more awake and alert I think will continue to monitor this patient closely. 2. Left lower lobe pneumonia, will continue with current antibiotic therapy. 3. Hypertension, blood pressure is under control, continue same management. 4. Disposition. I think this patient is medically stable so will communicate oncology social work to see what facility will take her for rehab. cc: Gigi Brito MD
[2018-11-23] MEDS: FLONASE NAS SCH (16:50)
[2018-11-23] MEDS: RESTASIS 0.05% OPH DROPS BOTH EYES SCH ×2 (16:50→20:42)
[2018-11-23] MEDS: FLOMAX PO SCH (20:42)
[2018-11-24] MEDS: DUONEB (A & A) INH SCH ×4 (03:29→21:09)
[2018-11-24] MEDS: NS 1,000 ML IV SCH ×2 (05:41→17:56)
[2018-11-24] MEDS: KEPPRA 1,000 MG/NS 1,000 MG/100 ML IVPB IV SCH ×2 (06:39→18:09)
[2018-11-24] MEDS: PRILOSEC PO SCH (06:39)
[2018-11-24] MEDS: MUCOMYST 20% INH SCH ×2 (08:27→21:09)
[2018-11-24] MEDS: ASPIRIN EC PO SCH (09:25)
[2018-11-24] MEDS: RESTASIS 0.05% OPH DROPS BOTH EYES SCH ×3 (09:25→20:44)
[2018-11-24] MEDS: MAXIPIME 1 GM in NS 50 ML IV SCH ×2 (09:25→20:41)
[2018-11-24] MEDS: THERA M PLUS PO SCH (09:25)
[2018-11-24] MEDS: ZYVOX PO SCH ×3 (09:25→23:17)
[2018-11-24] MEDS: COREG PO SCH ×2 (09:25→20:41)
[2018-11-24] MEDS: FLONASE NAS SCH (09:26)
--- NOTE | 2018-11-24 12:52 | PROGRESS NOTE ---
DATE: 11/24/2018 SUBJECTIVE: The patient reports feeling fine. A little bit more awake today. No acute issues noted as per nursing staff overnight. OBJECTIVE: Vital Signs: Temperature degrees 97.8, heart rate 52, respiratory rate 18, blood pressure 135/51, O2 saturation 92% on 2 L nasal cannula. General: This is a 78-year-old female lying in bed, in no acute distress. Cardiovascular: S1 and S2 heard. No murmurs, gallops, or rubs. Regular rate and rhythm. Respiratory: Clear bilaterally to auscultation. No work of breathing or using accessory muscles. Abdomen: Soft, nontender to palpation. Bowel sounds present. No organomegaly. Extremities: No clubbing, cyanosis, or edema. Peripheral pulses present in both legs. Neurological: The patient is able to talk to me. Her speech is coherent. Moves all 4 extremities spontaneously. LABORATORY DATA: Reviewed. ASSESSMENT AND PLAN: 1. Left lower lobe pneumonia. The patient will continue with current antibiotic therapy. White cell count at presentation was elevated but now is back to normal. She is requiring only 2 L of oxygen by nasal cannula now. 2. Altered mental status. Over the last 3 days, the patient has been confused. She has been evaluated by Neurology, and now she is definitely much more oriented. The EEG showed diffuse encephalopathy, nonspecific, and also epileptiform discharge that correlates with clinical seizure. In any case, she is more stable. Sometimes she is more confused. Neurology is following. I think at this point, she is more stable. 3. Hypertension. Blood pressure is under control. We will continue with same medication. 4. Physical deconditioning. The patient is working with physical therapy. 5. Disposition. I think this patient is medically stable. We are waiting for social science analyst to provide a rehab bed for this patient. 6. Once this patient is ready to go, we will switch antibiotics to oral to keep her on at least a couple weeks of antibiotics considering that she had recurrent pneumonia. cc: Gigi Brito MD
[2018-11-24] MEDS: FLOMAX PO SCH (20:42)
[2018-11-25] MEDS: DUONEB (A & A) INH SCH ×2 (03:09→10:58)
[2018-11-25] MEDS: NS 1,000 ML IV SCH ×2 (04:10→04:19)
[2018-11-25] MEDS: PRILOSEC PO SCH ×2 (05:22→06:14)
[2018-11-25] MEDS: KEPPRA 1,000 MG/NS 1,000 MG/100 ML IVPB IV SCH (05:22)
[2018-11-25 07:17] VITALS: BP 118/54
[2018-11-25 07:26] LABS: AGAP 9; BUN 9 mg/dL (8-22); CALCIUM 7.9 mg/dL (8.8-10.2); CHLORIDE 112 mmol/L (98-107); COSMO 282; CREATININE 0.8 mg/dL (0.5-0.9); ESTIMATED GFR > 60; GLUCOSE 102 mg/dL (70-104); POTASSIUM 3.8 mmol/L (3.5-5.1); SODIUM 142 mmol/L (136-145); TCO2 21 mmol/L (25-35)
[2018-11-25 07:41] LABS: BASO# 0.01 X1000 (0.0-0.2); BASO% 0.2 % (0.0-0.8); EOS# 0.21 X1000 (0.0-0.7); EOS% 4.5 % (0.0-10.0); HEMATOCRIT 28.6 % (37.0-47.0); HEMOGLOBIN 8.8 g/dL (12.0-16.0); LYMPH# 1.57 X1000 (1.2-3.4); MCH 27.7 PG (27-31); MCHC 30.8 g/dL (33-37); MCV 89.9 FL (81-99); MONO# 0.33 X1000 (0.11-0.59); MONO% 7.1 % (1.7-9.3); NEUT% 54.2 % (42.2-75.2); PLT 171 X1000 (130-400); RBC 3.18 XMIL (4.2-5.4); RDW 15.4 % (11.5-14.5); WBC 4.62 X1000 (4.8-10.8)
[2018-11-25] MEDS: MAXIPIME 1 GM in NS 50 ML IV SCH (08:31)
[2018-11-25] MEDS: THERA M PLUS PO SCH (08:32)
[2018-11-25] MEDS: COREG PO SCH (08:32)
[2018-11-25] MEDS: FLONASE NAS SCH (08:32)
[2018-11-25] MEDS: ASPIRIN EC PO SCH (08:32)
[2018-11-25] MEDS: RESTASIS 0.05% OPH DROPS BOTH EYES SCH (08:33)
[2018-11-25] MEDS: ZYVOX PO SCH (10:05)
--- NOTE | 2018-11-25 10:39 | DISCHARGE SUMMARY ---
ADMISSION DATE: 11/18/2018 DISCHARGE DATE: 11/25/2018 PERTINENT PROCEDURES: 1. A V/Q scan: No evidence of acute PHYSICAL EXAMINATION. 2. Head CT: No visible acute intracranial abnormality. No hemorrhage or mass effect. Mild paranasal sinus disease noted at the left compartment of the sphenoid sinuses. 3. Brain MRI: Mild atrophic changes and mild chronic microvascular ischemic changes. No visible acute intracranial abnormality. No evidence of acute infarct. 4. EEG: Abnormal because of generalized swelling and generalized epileptiform discharge. DISCHARGE DIAGNOSES: 1. Left lower lobe pneumonia. The patient has been on dual antibiotic therapy since 11/18. 2. Altered mental status. The patient underwent a head CT, brain MRI and Neurology consult. Her electroencephalogram showed diffuse encephalopathy, nonspecific. She will continue on her home Keppra. 3. Hypertension. Continue home medications. 4. Physical deconditioning. Patient has been working with physical therapy and has been accepted to rehabilitation at [facility]. 5. Elevated D-dimer. Pulmonary embolism ruled out with ventilation perfusion scan. 6. Anemia, stable. 7. Acute kidney injury, now resolved. 8. Chronic obstructive pulmonary disease exacerbation with acute on chronic hypoxemic respiratory failure requiring oxygen. She has been given intravenous antibiotics and bronchodilators and supplemental oxygen, and is now saturating well on room air. 9. Polypharmacy. 10. Questionable congestive heart failure. 11. Situational depression, stable. HOSPITAL COURSE: Briefly, Ms. 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 She recently moved here from [place] 3 years ago. She has a history of chronic pain with fibromyalgia on lots of pain medications, and a question of some situational depression. Apparently, she had went through a little bit of rehabilitation, was taken off a lot of her pain medication, and has been living at [facility] in [place] for the last 3 years. Per her son, she had been getting around okay using a walker, but became more weak over the last 2 months. She was treated in [place] a month and a half ago for pneumonia, and then again 2 weeks later at [place] once again with confusion. Her previous chest x-ray did not show any pneumonia, but she did have a productive cough with a zhao-sheppard phlegm. She did report shortness of breath. She was hypoxemic upon admission, and had to be placed on supplemental O2. They did a V/Q scan that ruled out PE and was admitted for COPD exacerbation with acute on chronic hypoxemic respiratory failure requiring O2. She did quickly recover with supplemental O2. They continued to treat her for pneumonia with 2 antibiotics. She had an acute kidney injury that has now resolved. She did have some questionable altered mental status for which she had a head CT, brain MRI, EEG, and was followed by Dr. Arnold. She did not have any clear focal neurological deficit. The patient is now oriented and stable. She has been working with physical therapy and will be discharged to [facility] to continue with her rehabilitation. VITAL SIGNS: At time of discharge, temperature is 98 degrees, heart rate 53, respirations 16, blood pressure 118/54, O2 is 95% on room air. DISCHARGE DIET: Healthy heart with Ensures. DISCHARGE MEDICATIONS: 1. Crestor 20 mg p.o. at bedtime. 2. Melatonin 3 mg p.o. at bedtime. 3. Aspirin 81 mg p.o. daily. 4. Bentyl 10 mg p.o. t.i.d. p.r.n. 5. BuSpar 50 mg p.o. b.i.d. 6. Centrum multivitamin 1 each p.o. daily. 7. Clonidine 1 each transdermal q. 7 days. 8. Coreg 25 mg p.o. b.i.d. 9. Cymbalta 30 mg p.o. daily. 10. Flomax 0.4 mg p.o. at bedtime. 11. Flonase 2 sprays nasal daily. 12. Hydrochlorothiazide 12.5 mg p.o. daily. 13. Keppra 750 mg p.o. q. 12 hours. 14. Lasix 40 mg p.o. daily. 15. Lyrica 150 mg p.o. b.i.d. 16. MiraLAX 17 g p.o. daily. 17. Mobic 15 mg p.o. daily. 18. Prilosec 40 mg p.o. daily. 19. Procardia XL 30 mg p.o. daily. 20. Refresh 1 drop both eyes b.i.d. 21. Restasis 1 drop both eyes. 22. Savella 50 mg p.o. b.i.d. 23. SudoGest 10 mg p.o. t.i.d. p.r.n. 24. Symbicort 160-4.5 inhaler one puff inhaled b.i.d. 25. Telmisartan 80 mg p.o. daily. 26. Tessalon Perles 100 mg p.o. t.i.d. 27. Tussin DM cough syrup 10 mL p.o. q. 8 hours p.r.n. 28. Tylenol 650 mg p.o. q. 4 to q. 6 hours p.r.n. pain. 29. Albuterol sulfate inhaler 2 puffs inhaled q. 6 hours. 30. Vitamin B 12 1000 mcg p.o. daily. 31. Vitamin D 2 50,000 units p.o. q. 7 days. 32. Voltaren 1% gel 4 g topical 4 times a day p.r.n. pain. 33. Zofran 4 mg p.o. q. 4 to q. 6 hours p.r.n. nausea. 34. Zyrtec 10 mg p.o. daily. 35. Ultram 50 mg p.o. q. 6 hours p.r.n. pain. FOLLOWUP: Ms. Foster is being discharged to [facility] where she will continue working on her physical therapy. She is to take all medications as prescribed. Follow up with her primary care provider. She can return to the ED or call 911 for any worsening of symptoms. Dictated by LILA Jacobson for Peter Holly MD cc: Peter Holly MD
--- NOTE | 2018-11-26 01:47 | DISCHARGE SUMMARY ---
ADMISSION DATE: 11/18/2018 DISCHARGE DATE: 11/25/2018 ADDENDUM: Patient seen and examined by myself. Full note dictated discussed with nurse practitioner. Patient presented to the hospital, diagnosed with left lower lobe pneumonia and altered mental status. He has been evaluated by Neurology. EEG showed global slowing. We are going to transition her to rehab. cc: Peter Holly MD
== END 2018-11-25 14:24 | DRG 193 ==
LOC: P.ED 16:09 → P.MEDSURG 19:38 → SUATTDRO 19:38
PROVIDERS: ATTEND Family Medicine